=== PATIENT | male | born 1955 ===

== ENCOUNTER 2024-12-23 12:16 | Emergency (ER) | payer MEDICARE, BC ==
[2024-12-23] MEDS ORDERED: Sodium Chloride 0.9% 10 ML Syringe FLUSH PRN (12:21)
[2024-12-23 12:57] LABS: B-TYPE NATRIURETIC PEPTIDE,BNP 142.0 pg/ml (0-100)
[2024-12-23 12:58] LABS: INR 0.9 (0.9-1.2); PTT,PARTIAL THROMBOPLSTIN TIME 24.1 SEC (22.0-34.0)
== END 2024-12-23 14:13 | disposition home or self-care (01) ==
LOC: DL.ED 12:16
DX: R07.89 Other chest pain (principal); R79.89 Other specified abnormal findings of blood chemistry; I10 Essential (primary) hypertension; E11.9 Type 2 diabetes mellitus without complications; Z79.899 Other long term (current) drug therapy; Z79.84 Long term (current) use of oral hypoglycemic drugs
CPT/HCPCS: 36415; 83735; 83880; 84484; 85610; 85730; 93005; 99285